=== PATIENT | female | born 1940 | race Caucasian/White ===

== ENCOUNTER → 2017-01-23 | Outpatient (CLI) | payer MEDICARE, BC | END | disposition disaster alternative care site (69) | LOC: GRAD 12:58 | DX: C91.10 Chronic lymphocytic leukemia of B-cell type not having achieved remission (principal); D68.59 Other primary thrombophilia; K44.9 Diaphragmatic hernia without obstruction or gangrene; K57.90 Diverticulosis of intestine, part unspecified, without perforation or abscess without bleeding; M43.8X4 Other specified deforming dorsopathies, thoracic region; R59.0 Localized enlarged lymph nodes ==